=== PATIENT | female | born 1975 | race Caucasian/White ===

== ENCOUNTER 2019-07-08 08:01 | Observation (INO) ==
[2019-07-08] MEDS ORDERED: ASPIRIN PO ONE (08:32)
--- NOTE | 2019-07-08 08:45 | PROVIDER DOCUMENTATION ---
HPI-Respiratory General - General Chief Complaint: Fall Stated Complaint: FALL - CHEST/BACK PAIN Time Seen by Provider: 07/08/19 08:39 Source: patient Allergies/Adverse Reactions: Patient Allergies Allergy/AdvReac Type Severity Reaction Status Date / Time Penicillins Allergy Intermediate HIVES Verified 04/09/19 10:58 adhesive AdvReac Unknown Verified 04/09/19 10:58 Home Medications: Home Medication List Medication Instructions Recorded Confirmed Last Taken Type Gabapentin [Neurontin] 300 mg PO TID 09/26/13 07/08/19 08/25/15 09:00 History Carvedilol 3.125 mg PO DAILY 12/11/14 07/08/19 08/25/15 09:00 History Duloxetine HCl 60 mg PO DAILY 12/11/14 07/08/19 08/25/15 09:00 History Ropinirole HCl 0.25 mg PO QHS 12/11/14 07/08/19 08/25/15 09:00 History Albuterol Sulfate Inhaler 2 puff INH Q6H PRN PRN #1 inhaler 05/14/18 07/08/19 Unknown Rx [Ventolin Hfa] Amlodipine Besylate 10 mg PO DAILY 10/31/18 07/08/19 Unknown History Losartan/Hctz [Hyzaar 100/12.5 mg 1 ea PO DAILY 10/31/18 07/08/19 Unknown History Tab] - History of Present Illness-Resp Nature of Presenting Problem: fell last night hitting left chest area laterally smokes hx asthma now hurting left lateral chest o2 sat low bilateral breath sounds Quality of Pain: reports: sharp Severity in ED: reports: moderate Onset/Duration: reports: last night Timing: reports: still present Cough Quality/Degree: reports: no cough Episode Frequency: no prior episodes Current Respiratory Medication Therapy: Initiated albuterol Modifying Factors: worse with: exertion, deep breath Associated Symptoms: reports: chest pain/soreness, short of breath Similar Symptoms Previously?: No Recently seen or treated by another doctor?: No Review of Systems - Adult - REVIEW OF SYSTEMS - ADULT Constitutional: reports: no symptoms reported Eyes: reports: no symptoms reported Ears, Nose, Mouth & Throat: reports: no symptoms reported Cardiovascular: reports: no symptoms reported Respiratory: reports: shortness of breath. denies: hemoptysis, pleurisy Gastrointestinal: reports: no symptoms reported Genitourinary: reports: no symptoms reported Musculoskeletal: reports: back pain Integumentary: reports: no symptoms reported Neurological: reports: no symptoms reported Past History - Adult - PAST MEDICAL HISTORY-ADULT Review of Records: reports: Nursing Assessment Review, Medications Reviewed, Social history reviewed & non-contributory. Major Childhood Illnesses: reports: denies history Cardiovascular: reports: HTN, hyperlipidemia Respiratory: reports: denies history Gastrointestinal: reports: denies history Obstetrical/Gynecological: reports: denies history Genitourinary: reports: denies history Musculoskeletal: reports: denies history Neurological: reports: headaches/migraines Psychiatric: reports: depression Endocrine/Immune: reports: denies history Other Conditions: reports: denies history - PRIOR SURGERIES/PROCEDURES Surgical/Procedure History: reports: cholecystectomy, hysterectomy, - PRIOR HOSPITALIZATIONS Prior Hospitalizations: reports: for other non-related - IMMUNIZATION STATUS Childhood Immunizations: UTD Flu Vaccine: See Nurse Assessment - FAMILY HISTORY Family History: reviewed, not pertinent Physical Exam-General - PHYSICAL EXAM-ADULT Initial Vital Signs Reviewed: Yes - CONSTITUTIONAL General Appearance: appears well, alert, mild distress - EYES Eyes: PERRL/EOMI - HEAD, EARS, NOSE, MOUTH & THROAT HENMT: normocephalic/atraumatic, moist mucous membranes - NECK Neck: non-tender, full range of motion - RESPIRATORY Respiratory: no respiratory distress, rhonchi. negative: pleural rub, decreased rate, increased rate - CARDIOVASCULAR Cardiovascular: normal peripheral pulses, regular rate, rhythm, no edema - GASTROINTESTINAL (ABDOMEN) Abdominal Exam: normal bowel sounds, non tender, soft - LYMPHATIC Lymphatic: no adenopathy - MUSCULOSKELETAL Back Exam: normal inspection, no CVA tenderness, no vertebral tenderness Extremity: normal range of motion, non-tender - SKIN Integumentary: normal color, normal turgor - NEUROLOGIC Neurologic: grossly normal - PSYCHIATRIC Psych/Mental Status: oriented x 3 Progress - PLAN OF CARE/RESULTS Progress/Plan/Lab Results: Vital Signs - 8 hr 07/08/19 08:05 07/08/19 08:52 Temperature 98.1 F Pulse Rate 104 H 100 H Respiratory Rate 20 14 Blood Pressure 104/72 140/107 O2 Sat by Pulse Oximetry 94 L 90 L Laboratory Results - last 24 hr 07/08/19 07/08/19 07/08/19 08:40 08:40 08:55 WBC 13.48 H RBC 4.74 Hgb 14.3 Hct 40.4 MCV 85.2 MCH 30.2 MCHC 35.4 RDW Std Deviation 11.9 Plt Count 348 MPV 9.6 Immature Gran % (Auto) 0.1 Neut % (Auto) 84.3 H Lymph % (Auto) 11.5 L Luna % (Auto) 3.4 Eos % (Auto) 0.5 Baso % (Auto) 0.2 Immature Gran # (Auto) 0.02 Neut # (Auto) 11.35 H Lymph # (Auto) 1.55 Luna # (Auto) 0.46 Eos # (Auto) 0.07 Baso # (Auto) 0.03 PT 11.9 INR 0.84 PTT (Actin FS) 27.5 Specimen Type ARTERIAL Sample Site R RADIAL pH 7.56 H* pCO2 27 L pO2 54 L HCO3 27.2 H Base Excess 3.2 H Oxyhemoglobin 90.2 L ABG O2 Sat (Calculated) 19.1 ABG O2 Saturation 93.7 L ABG Carboxyhemoglobin 3.00 H ABG Methemoglobin 0.8 Dragan Test YES A-a O2 Difference 62.0 Total Hemoglobin 15.1 Lactate 2.60 H Blood Gas Modality ROOM AIR FiO2 % 21.0 Orders Category Date Time Status Cardiac Monitoring DIRECTED Care 07/08/19 08:32 Active Oxygen Therapy- ED Nursing DIRECTED Care 07/08/19 08:32 Active Saline Loc NOW Care 07/08/19 08:32 Active RIBS UNILAT W/PA CHEST LEFT [RAD] Stat Exams 07/08/19 08:56 Taken ABG [RESP] Routine Lab 07/08/19 08:55 Completed CBC WITH ELECTRONIC DIFF [HEME] Stat Lab 07/08/19 08:40 Completed CK PROFILE [SP CHEM] Stat Lab 07/08/19 08:40 Received COMPREHENSIVE METABOLIC PANEL [CHEM] Stat Lab 07/08/19 08:40 Received PRO B-NATRIURETIC PEPTIDE Stat Lab 07/08/19 08:40 Received PROTIME WITH INR [COAG] Stat Lab 07/08/19 08:40 Completed PTT [COAG] Stat Lab 07/08/19 08:40 Completed TROPONIN T HIGH SENSITIVITY Stat Lab 07/08/19 08:40 Received Aspirin Med 07/08/19 08:32 Discontinued 325 mg PO NOW ONE CP/SOB/Palp >45 yrs of Age Stat Oth 07/08/19 08:32 Ordered EKG [EKG] Stat Ther 07/08/19 08:32 Ordered Result Diagrams: 07/08/19 08:40 - EKG 1 Time of EKG reading by physician:: 09:20 EKG Read and Signed by:: Jasson Bob EKG Interpretation (*Must complete 3 of following elements*): Abnormal (possible left atrial enlargement;prolonged QT) Rate: 97 Rhythm: NSR QRS: normal ST Wave: normal Departure - Departure Referrals and Follow-Ups: Mai Bonilla MD [Primary Care Provider] -
[2019-07-08 08:54] LABS: BASO# 0.03 X1000 (0.0-0.2); BASO% 0.2 % (0.0-0.8); EOS# 0.07 X1000 (0.0-0.7); EOS% 0.5 % (0.0-10.0); HEMATOCRIT 40.4 % (37.0-47.0); HEMOGLOBIN 14.3 g/dL (12.0-16.0); IMM GRAN# 0.02 X1000 (0.0-0.04); IMM GRAN% 0.1 % (0.0-0.5); LYMPH# 1.55 X1000 (1.2-3.4); LYMPH% 11.5 % (20.5-51.1); MCH 30.2 PG (27-31); MCHC 35.4 g/dL (33-37); MCV 85.2 FL (81-99); MONO# 0.46 X1000 (0.11-0.59); MONO% 3.4 % (1.7-9.3); MPV 9.6 FL (7.4-10.4); NEUT# 11.35 X1000 (1.4-6.5); NEUT% 84.3 % (42.2-75.2); PLT 348 X1000 (130-400); RBC 4.74 XMIL (4.2-5.4); RDW 11.9 % (11.5-14.5); WBC 13.48 X1000 (4.8-10.8)
[2019-07-08 09:05] LABS: BE 3.2 mmoll (-3.0-3.0); BLOOD TYPE ARTERIAL; HCO3-(ACT) 27.2 mmoll (20.0-26.0); METHB 0.8 % (0.0-1.5); O2(CT) 19.1 mL/dL (15.0-23.0); O2HB 90.2 % (95.0-99.0); PCO2(98.6) 27 mmHg (35-45); PO2(98.6) 54 mmHg (60-100); SAMPLE BLOOD; SAO2 93.7 % (95.0-100.0); THB 15.1 g/dL (11.5-17.4)
[2019-07-08 09:07] LABS: pH(98.6) 7.56 (7.35-7.45)
[2019-07-08 09:08] LABS: ALLEN TEST YES; MODALITY ROOM AIR
[2019-07-08 09:09] LABS: INR 0.84; PROTIME 11.9 Seconds (11.0-16.0)
[2019-07-08 09:10] LABS: PTT 27.5 Seconds (22.3-41.8)
--- NOTE | 2019-07-08 09:21 | Diag Imaging Result Doc PS360 ---
EXAM: RIBS UNILAT W/PA CHEST LEFT 07/08/2019 HISTORY: fall rib pain TECHNIQUE: PA chest and left rib series 5 views COMMENT: There is no evidence of pneumothorax or pleural fluid collection. The heart and pulmonary vascularity are within normal limits. There are fractures of the left fourth through eighth ribs. IMPRESSION: Multiple left rib fractures. Electronically signed by Dada Carcamo 07/08/2019 9:18 AM
[2019-07-08] MEDS ORDERED: COZAAR PO ONE (09:35)
[2019-07-08] MEDS ORDERED: COREG PO ONE ×2 (09:36→09:45)
[2019-07-08] MEDS ORDERED: NORVASC ONE (09:42)
[2019-07-08] MEDS ORDERED: TYLENOL WITH CODEINE #3 PO ONE (09:50)
[2019-07-08 09:54] LABS: ESTIMATED GFR > 60
[2019-07-08 09:55] LABS: AGAP 18; ALKALINE PHOSPHATASE 100 U/L (32-104); BUN 8 mg/dL (8-22); CHLORIDE 88 mmol/L (98-107); CK PROFILE 43 U/L (24-173); COSMO 260; CREATININE 0.5 mg/dL (0.5-0.9); GLUCOSE 120 mg/dL (70-104); GOT 31 U/L (10-30); GPT 34 U/L (10-36); POTASSIUM 3.8 mmol/L (3.5-5.1); SODIUM 130 mmol/L (136-145); TCO2 24 mmol/L (25-35); TOTAL PROTEIN 7.9 g/dL (6.3-8.3)
--- NOTE | 2019-07-08 10:17 | Diag Imaging Result Doc PS360 ---
EXAM: CT THORAX W/CONTRAST 07/08/2019 HISTORY: hypoxia TECHNIQUE: This exam was performed using automated exposure control, adjustment of mA or kV according to patient size, and/or use of iterative reconstruction technique. COMMENT: There are no previous CT examinations. There is no evidence of pneumothorax or pleural fluid collections. There is no evidence of significant adenopathy. There is minimal fibrosis or atelectasis present in the posterior lateral right lower lobe. There is an old fracture with callus in the lateral right fifth rib. There are fractures of the left fourth, fifth, sixth, seventh and eighth fractures laterally. The thoracic spine and sternum appear to be intact. IMPRESSION: Multiple left acute rib fractures. Minimal right lower lobe atelectasis versus fibrosis. Otherwise no acute abnormality. Electronically signed by Dada Carcamo 07/08/2019 10:14 AM
--- NOTE | 2019-07-08 10:24 | EKG Report ---
Test Performed on : 07/08/2019 08:48:27 AM Test Reason : sob Blood Pressure : / mmHG Vent. Rate : 097 BPM Atrial Rate : 097 BPM P-R Int : 166 ms QRS Dur : 086 ms QT Int : 378 ms P-R-T Axes : 070 041 073 degrees QTc Int : 480 ms Normal sinus rhythm. Possible Left atrial enlargement Prolonged QT Abnormal ECG When compared with ECG of 07-JAN-2015 21:14, No significant change was found Unconfirmed Result
[2019-07-08] MEDS ORDERED: ROCEPHIN 1 GM in NS 50 ML IV ONE (10:29)
[2019-07-08] MEDS ORDERED: TYLENOL PO PRN (10:54)
[2019-07-08] MEDS ORDERED: ZOFRAN IV PRN (10:54)
[2019-07-08] MEDS: NORCO-5 PO PRN ×3 (12:16→23:50)
[2019-07-08 12:23] LABS: URINE SOURCE CLEAN CATCH
[2019-07-08 12:24] LABS: BILIRUBIN URINE NEGATIVE (NEGATIVE); BLOOD URINE SMALL (NEGATIVE); COLOR YELLOW; GLUCOSE URINE NEGATIVE (NEGATIVE); KETONE URINE NEGATIVE (NEGATIVE); LEUKOCYTES URINE NEGATIVE (NEGATIVE); NITRITE URINE NEGATIVE (NEGATIVE); PH URINE 6.5; PROTEIN URINE TRACE mg/dL (NEGATIVE); SP GRAVITY URINE 1.024; TURBIDITY URINE CLEAR (CLEAR); UROBILINOGEN URINE NORMAL (NORMAL)
[2019-07-08 12:37] LABS: UR EPITHELIAL CELLS <10 /HPF (<10); URINE BACTERIA 1+ /HPF; URINE CASTS NONE SEEN; URINE CRYSTALS NONE SEEN; URINE SMALL ROUND CELLS NONE SEEN; URINE WBC <10 /HPF (<10); URINE YEAST NONE SEEN
[2019-07-08] MEDS: NEURONTIN PO SCH ×2 (12:42→16:34)
[2019-07-08] MEDS ORDERED: FLU VACCINE IM ONE (13:15)
[2019-07-08] MEDS ORDERED: PNEUMOVAX 23 IM ONE (13:15)
--- NOTE | 2019-07-08 15:31 | HISTORY AND PHYSICAL ---
CHIEF COMPLAINT: Chest wall pain. HISTORY OF PRESENT ILLNESS: The patient is a very pleasant female, who presented to the hospital, notes that she smokes daily. She does have a history of asthma. States she tripped and fell, landed on her left chest. Since then, she has had increased work of breathing, increased pain, increased shortness of breath. Denies any fevers or chills. Denies any production to her cough. ALLERGIES: Penicillin causing rash. Adhesive tape causing rash. MEDICATIONS: Neurontin 300 t.i.d., Coreg 3.125 daily, duloxetine 60, ropinirole 0.25 at bedtime, albuterol, losartan/hydrochlorothiazide 100/12.5, and Norvasc 10 daily. PAST MEDICAL HISTORY: Hypertension, hyperlipidemia, chronic migraines, depression. SURGICAL HISTORY: She has had cholecystectomy, hysterectomy, had a . REVIEW OF SYSTEMS: As noted above. Positive shortness of breath, increased work of breathing, dyspnea on exertion. Denies any fevers, chills. Denies any production to her cough. Denies nasal congestion. Denies PND, orthopnea, pedal edema. Denies cardiac-type chest pain. Denies dysuria, frequency, urgency, hesitancy, polyuria, polydipsia. Denies constipation, melena, hematochezia. Denies skin rashes, weight loss, weight gain. FAMILY HISTORY: Noncontributory. SOCIAL HISTORY: Patient does smoke. Does not drink or use illicit substances. PHYSICAL EXAM: VITAL SIGNS: Temperature 98, pulse 104, respiratory rate 20, BP 140/107. The patient notes that she did not take her blood pressure medications this morning. Saturation 90% on room air. GENERAL: Patient is awake, pleasant. She is in mild distress secondary to pain with deep breathing. HEENT: Normocephalic. NECK: Supple. CARDIOVASCULAR: Regular rate. CHEST: Decreased breath sounds but equal. No wheezing. No rhonchi. ABDOMEN: Soft, nondistended, nontender. EXTREMITIES: Moves all extremities. No edema. NEUROLOGIC: No focal changes. SKIN: Warm, dry, no rashes. LABORATORY: WBC is 13.4, pH 7.5, pCO2 27, pO2 54, carboxyhemoglobin 3, lactate 2.6 on room air. ASSESSMENT: 1. Leukocytosis. 2. Lactic acidosis. 3. Left rib fractures. 4. Hypoxic respiratory failure, acute. 5. Chronic tobacco abuse. 6. Asthma. 7. Hypertension. PLAN: We are going to admit the patient to the hospital, oxygen, pain control. Follow her blood pressures. Further orders as needed. cc: Garcia Gonzales MD
[2019-07-08] MEDS: DUONEB (A & A) INH PRN ×3 (16:25→23:35)
[2019-07-08] MEDS ORDERED: REQUIP PO SCH (21:00)
[2019-07-09] MEDS: NORCO-5 PO PRN ×2 (07:02→12:53)
[2019-07-09] MEDS: DUONEB (A & A) INH PRN (08:41)
[2019-07-09] MEDS ORDERED: HYDROCHLOROTHIAZIDE PO SCH (09:00)
[2019-07-09] MEDS ORDERED: COREG PO SCH (09:00)
[2019-07-09] MEDS ORDERED: NORVASC PO SCH ×2 (09:00)
[2019-07-09] MEDS ORDERED: COZAAR PO SCH (09:00)
[2019-07-09] MEDS ORDERED: CYMBALTA PO SCH (09:00)
[2019-07-09] MEDS: NEURONTIN PO SCH (10:18)
[2019-07-09] MEDS ORDERED: ROCEPHIN 1 GM in NS 50 ML IV SCH (11:00)
[2019-07-09 11:50] VITALS: BP 129/83
--- NOTE | 2019-07-09 15:53 | DISCHARGE SUMMARY ---
ADMISSION DATE: 07/08/2019 DISCHARGE DATE: 07/09/2019 ADMISSION AND DISCHARGE DIAGNOSES: 1. Leukocytosis. 2. Lactic acidosis. 3. Left rib fractures. 4. Acute hypoxemic respiratory failure. 5. Chronic tobacco abuse. 6. Asthma. 7. Hypertension. 8. Chest wall pain. CONSULTATIONS: None. SURGERIES AND PROCEDURES: None. HOSPITAL COURSE: Ms. Ashley Weaver is a 44-year-old female who presents to the emergency department, who smokes daily, with complaints of chest wall pain. She does have a history of asthma. Apparently, she had tripped and fell, landed on her left chest. Since then, she has been having increased work of breathing, increased pain, increased shortness of breath. Denied any fever or cough. She was given oxygen and pain control, which essentially resolved the problem. Now she is going to be discharged home. Currently, her room air saturations can be anywhere from 90 to 94%, but she is not tachypneic, and her pain control has improved. She is not pain free, but it has improved. DISCHARGE VITAL SIGNS: Temperature 98.0 degrees, heart rate 84, respiratory rate 18, blood pressure 121/71, O2 saturation 92% on 2 L, 90% on room air. LAB DATA: She did not have any repeat labs. That was present on admission. IMAGING: EKG shows sinus rhythm, rate 97. QTc was 482. Rib x-ray: Multiple left rib fractures. No pneumothorax. Chest CT: Multiple left acute rib fractures. Minimal right lower lobe atelectasis versus fibrosis, otherwise nothing else acute. DISCHARGE MEDICATIONS: 1. [place] 1 tablet p.o. every 4 to 6 hours p.r.n. 2. Omnicef 300 mg p.o. twice daily. 3. Albuterol 2 puffs inhaled every 6 hours p.r.n. 4. Singulair 10 mg p.o. daily. 5. Neurontin 300 mg p.o. t.i.d. 6. Mobic 15 mg p.o. daily. 7. Hydrochlorothiazide/losartan 100/12.5 mg 1 tablet p.o. daily. 8. Cymbalta 60 mg p.o. daily. 9. Coreg 3.125 mg p.o. daily. 10. Amlodipine 10 mg p.o. daily. 11. Ropinirole 0.25 mg p.o. nightly. 12. Ambien 10 mg p.o. nightly. PHYSICIAN FOLLOWUP: Dr. Mai Bonilla. DISCHARGE ACTIVITY: As tolerated. DISCHARGE DIET: Regular. DISCHARGE INSTRUCTIONS: If your condition changes, contact physician and/or return to the emergency department. Changes may include, but are not limited to, shortness of breath, increased fatigue, excessive bleeding, unexplained weight loss or gain, unmanageable pain, signs or symptoms of infection. DISCHARGE DISPOSITION: Home. Dictated by CAMILLA Pradhan for Garcia Gonzales MD cc: CAMILLA Pradhan MD
--- NOTE | 2019-07-09 16:12 | DISCHARGE SUMMARY ---
ADMISSION DATE: 07/08/2019 DISCHARGE DATE: 07/09/2019 DISCHARGE DIAGNOSES: 1. Acute hypoxic respiratory failure, improved. 2. Left rib fractures. 3. Leukocytosis. CONSULTATIONS: None. BRIEF HOSPITAL COURSE: The patient was admitted to the hospital due to hypoxemia. This was mainly due to the fact that she is having difficulty breathing secondary to the pain. She was admitted, placed on pain medication which she notes has improved. On discharge, her O2 saturation was 90%. We are going to discharge her home with hydrocodone 7.5 q. 4 h. p.r.n., and she can follow up outpatient with her primary care. cc: Garcia Gonzales MD
== END 2019-07-09 13:57 | disposition home or self-care (01) ==
LOC: P.ED 08:01 → INTOOBSV 08:02 → P.MEDSURG 10:02
PROVIDERS: ATTEND Family Medicine